=== PATIENT | female | born 1970 | race African-American/Black ===

== ENCOUNTER → 2017-10-25 | Day surgery (SDC) | payer OTHER ==
--- NOTE | 2017-10-26 10:38 | PATH ---
Surgical Pathology Report Patient Name: VANESSA BESS [facility]. Rec. #: [id number] /Age/Gender: 1970 (Age: 46) / F Account: [id number] Location: [facility] Taken: 10/25/2017 Received: 10/25/2017 Reported: 10/26/2017 Physicians: Rylie Hughes M.D. Specimen(s) Received A: LEFT BREAST SPECIMEN WITH CALCIFICATIONS B: LEFT BREAST SPECIMEN WITHOUT CALCIFICATIONS Clinical History Nonpalpable lesion Mammographic findings: Microcalcification, suspicious Final Diagnosis A. BREAST, LEFT, WITH CALCIFICATIONS, STEREOTACTIC BIOPSY: BENIGN BREAST TISSUE SHOWING FIBROCYSTIC CHANGES INCLUDING CYSTIC APOCRINE METAPLASIA WITH FEW CALCIFICATIONS IN ASSOCIATION WITH CYST CONTENTS AND FOCALLY IN BENIGN GLANDULAR PARENCHYMA. B. BREAST, LEFT, WITHOUT CALCIFICATIONS, STEREOTACTIC BIOPSY: BENIGN BREAST TISSUE. Electronically Signed Torie Blanco M.D. Gross Description A. Received in formalin labeled "left breast with calcifications," is a 1.8 x 1.3 x 0.3 cm aggregate of multiple escalera-yellow, irregular to cylindrical portions of fibroadipose tissue. The formalin is filtered and the specimen is entirely submitted in one cassette. B. Received in formalin labeled "left breast without calcifications," is a 2.0 x 1.5 x 0.3 cm aggregate of multiple escalera-yellow, irregular to cylindrical portions of fibroadipose tissue. The formalin is filtered and the specimen is entirely submitted in one cassette. Time to formalin fixation: 5 minutes Total formalin fixation time: Approximately 6 hours. 10/25/2017 [facility]10/25/2017
== END | disposition home or self-care (01) ==
LOC: FMAMMOTONE 10:08
PROVIDERS: ATTEND Family Medicine
PROC: 0HBU3ZX Excision of Left Breast, Percutaneous Approach, Diagnostic (ICD-10-PCS; principal; 2017-10-25)
DX: N60.12 Diffuse cystic mastopathy of left breast (principal); R92.1 Mammographic calcification found on diagnostic imaging of breast; Z53.8 Procedure and treatment not carried out for other reasons; N64.89 Other specified disorders of breast
CPT/HCPCS: 19081; 19082; 87899; 88305-TC; A4648

== ENCOUNTER 2018-05-16 12:57 | Day surgery (SDC) | payer OTHER ==
[2018-05-14 16:30] VITALS: BMI 20.3
[2018-05-16 14:31] VITALS: BP 117/76; PULSE 88; TEMP 98
--- NOTE | 2018-05-16 14:33 | HP ---
Admitting History and Physical - Admission Chief Complaint: Prolonged and heavy menses History of Present Illness: 47 yo with h/o prolonged and heavy menses is pre op for D&C hysteroscopy. History Source: Patient Limitations to Obtaining History: No Limitations - Past Medical History ...LMP: 04/15/18 ...: No - Smoking History Smoking history: Never smoked - Alcohol/Substance Use Hx Alcohol Use: No Home Medications - Allergies Allergies/Adverse Reactions: Allergies Allergy/AdvReac Type Severity Reaction Status Date / Time No Known Allergies Allergy Verified 05/14/18 16:09 - Home Medications Home Medications: Ambulatory Orders Ascorbic Acid [Vitamin C -] 500 mg PO DAILY 05/14/18 Atorvastatin Ca [Lipitor] 10 mg PO HS 05/14/18 Clozapine 400 mg PO HS 05/14/18 Docusate Sodium [Colace] 100 mg PO DAILY 05/14/18 Metoprolol Succinate [Toprol Xl] 50 mg PO DAILY 05/14/18 Multivit-Min36/Iron/Folic Acid [Geritol Complete Tablet] 1 each PO DAILY Family Disease History - Family Disease History Family History: Unremarkable Review of Systems - Review of Systems Constitutional: reports: No Symptoms Eyes: reports: No Symptoms HENT: reports: No Symptoms Neck: reports: No Symptoms Cardiovascular: reports: No Symptoms Respiratory: reports: No Symptoms Gastrointestinal: reports: No Symptoms Genitourinary: reports: No Symptoms Breasts: reports: No Symptoms Reported Musculoskeletal: reports: No Symptoms Integumentary: reports: No Symptoms Neurological: reports: No Symptoms Endocrine: reports: No Symptoms Hematology/Lymphatic: reports: No Symptoms Psychiatric: reports: No Symptoms Pain Intensity: 0 Physical Examination Constitutional: Yes: Well Nourished Eyes: Yes: Conjunctiva Clear HENT: Yes: Atraumatic Neck: Yes: Supple Cardiovascular: Yes: Regular Rate and Rhythm Respiratory: Yes: Regular Gastrointestinal: Yes: Normal Bowel Sounds Extremities: Yes: WNL Neurological: Yes: Alert, Oriented ...Motor Strength: WNL Psychiatric: Yes: Alert, Oriented Problem List - Problems (1) Menorrhagia Code(s): N92.0 - EXCESSIVE AND FREQUENT MENSTRUATION WITH REGULAR CYCLE Qualifiers: Menorrahagia type: with regular cycle Qualified Code(s): N92.0 - Excessive and frequent menstruation with regular cycle Assessment/Plan Menorrhagia Pre op for D&C hysteroscopy Consent signed Anesthesia to see patient
== END 2018-05-16 16:35 | disposition home or self-care (01) ==
LOC: JASU-SURG 12:57
PROVIDERS: ATTEND Obstetrics & Gynecology
PROC: 3E033GC Introduction of Other Therapeutic Substance into Peripheral Vein, Percutaneous Approach (ICD-10-PCS; principal; 2018-05-16)
DX: Z53.8 Procedure and treatment not carried out for other reasons (principal)
CPT/HCPCS: 84703

== ENCOUNTER 2018-05-30 13:53 | Day surgery (SDC) | payer OTHER ==
[2018-05-28 14:46] VITALS: BMI 19.6
--- NOTE | 2018-05-30 15:31 | HP ---
History & Physical Update - Physical Physical: No Change - Assessment Assessment: No Change - Plan Plan: No Change
[2018-05-30] MEDS ORDERED: LIDOCAINE HCL/PF 2% SDV 5ML VIAL ONE (15:35)
[2018-05-30] MEDS ORDERED: SUCCINYLCHOLINE CHLORIDE 200 MG/10 ML VIAL ONE (15:35)
[2018-05-30] MEDS ORDERED: PROPOFOL 20 ML ONE (15:35)
[2018-05-30] MEDS ORDERED: MIDAZOLAM HCL 2 MG/2 ML SINGLE DOSE VIAL ONE (15:35)
--- NOTE | 2018-05-30 16:39 | OP ---
Operative Note - Note: Operative Date: 05/30/18 Pre-Operative Diagnosis: Menorrhagia Operation: D&C Hysteroscopy Post-Operative Diagnosis: Same as Pre-op Surgeon: Mindy Galvez Anesthesia: General Specimens Removed: Endometrial curettings Estimated Blood Loss (mls): 5 Operative Report Dictated: Yes
[2018-05-30] MEDS ORDERED: LACTATED RINGERS SOLUTION 1,000 ML IV SCH (16:45)
[2018-05-30] MEDS ORDERED: KETOROLAC TROMETHAMINE 30 MG/1 ML VIAL ONE (17:05)
[2018-05-30] MEDS ORDERED: ACETAMINOPHEN INJECTION 100 ML IVPB ONE (17:05)
[2018-05-30] MEDS ORDERED: ACETAMINOPHEN 1000 MG/100 ML VIAL (NON FORMULARY) IVPB ONE ×2 (17:08→17:30)
[2018-05-30] MEDS ORDERED: KETOROLAC TROMETHAMINE 30 MG/1 ML VIAL IVPUSH ONE (17:30)
--- NOTE | 2018-05-30 18:03 | OP ---
DATE OF OPERATION: 05/30/2018 PREOPERATIVE DIAGNOSIS: Menorrhagia. POSTOPERATIVE DIAGNOSIS: Menorrhagia. PROCEDURE: Dilation and curettage hysteroscopy. SURGEON: Mindy Galvez MD ANESTHESIA: General. COMPLICATIONS: None. ESTIMATED BLOOD LOSS: Less than 5 mL. PROCEDURE: Patient was taken to the operating room where general anesthesia was administered. Patient was then placed in lithotomy position. She was then prepped and draped in appropriate sterile fashion. A weighted speculum was placed in the vagina. Anterior lip of the cervix was grasped with a single-toothed tenaculum. Then the 5-mm hysteroscope was gently introduced into the uterine cavity. There was a blood clot noted in the cavity. The hysteroscope was removed. The cervix was sequentially dilated with Winchester dilators and a sharp curettage was then performed. A second hysteroscopic look at the cavity confirmed removal of the clots and then the instruments were removed. The patient was taken out of lithotomy position. She was taken to the PACU in stable condition. PATHOLOGY: Endometrial curettings. Rylie [id number]
[2018-05-30 20:03] VITALS: BP 130/74; PULSE 99; TEMP 97.3
--- NOTE | 2018-06-03 17:59 | PATH ---
Surgical Pathology Report Patient Name: VANESSA BESS [facility]. Rec. #: [id number] /Age/Gender: 1970 (Age: 47) / F Account: [id number] Location: [facility] SURGICAL Taken: 05/30/2018 Received: 05/31/2018 Reported: 06/03/2018 Physicians: Mindy Galvez M.D. Specimen(s) Received ENDOMETRIAL CURETTINGS Clinical History Menorrhagia Final Diagnosis ENDOMETRIAL CURETTINGS, DILATION AND CURETTAGE: FRAGMENTS OF ENDOMETRIAL POLYP, SUPERFICIAL MYOMETRIUM, AND BENIGN CERVICAL SQUAMOUS MUCOSA. Electronically Signed Jackie Gonzalez M.D. Gross Description Received in formalin labeled "endometrial curettings," is a 3.5 x 3.0 x 0.3 cm aggregate of escalera-brown soft tissue fragments admixed with blood clot. The formalin is filtered and the specimen is entirely submitted in 2 cassettes. /05/31/2018 [place]05/31/2018
== END 2018-05-30 19:15 | disposition home or self-care (01) ==
LOC: JASU-SURG 13:53
PROVIDERS: ATTEND Obstetrics & Gynecology
PROC: 0UDB7ZX Extraction of Endometrium, Via Natural or Artificial Opening, Diagnostic (ICD-10-PCS; principal; 2018-05-30 15:00)
PROC: 0UJD8ZZ Inspection of Uterus and Cervix, Via Natural or Artificial Opening Endoscopic (ICD-10-PCS; 2018-05-30 15:00)
DX: N92.0 Excessive and frequent menstruation with regular cycle (principal)
CPT/HCPCS: 84703; 88305-TC; 94760; J0131

== ENCOUNTER 2021-11-24 14:17 | Inpatient (IN) | payer OTHER ==
[2021-11-24] MEDS ORDERED: SODIUM CHLORIDE 1,000 ML IV STA (15:27)
[2021-11-24] MEDS ORDERED: ONDANSETRON 4 MG/2 ML VIAL IVPUSH ONE (15:27)
[2021-11-24] MEDS ORDERED: ONDANSETRON 4 MG/2 ML VIAL ONE (15:47)
[2021-11-24] MEDS ORDERED: morphine CARPU-JECT 4 MG/1 ML DISP.SYRIN IVPUSH ONE (16:10)
[2021-11-24 16:49] LABS: BASO % 0.5 % (0-2.0); EOS % 0.1 % (0-4.5); HEMATOCRIT 32.7 % (32.4-45.2); HEMOGLOBIN 10.8 GM/dL (10.7-15.3); LYMPH % 21.2 % (8-40); MCH 25.8 pg (25.7-33.7); MCHC 33.1 g/dl (32.0-36.0); MEAN CELL VOLUME 78.1 fl (80-96); MEAN PLT VOLUME 9.6 fl (7.5-11.1); MONO % 9.1 % (3.8-10.2); NEUT % 69.1 % (42.8-82.8); PLATELET COUNT 247 10^3/uL (134-434); RBC 4.19 M/mm3 (3.60-5.2); RDW 14.5 % (11.6-15.6)
[2021-11-24 16:56] LABS: EPI CELLS >36 /uL (0-25.1); HYALINE CASTS 7 /uL (0-3.1); URINE APPEARANCE CLOUDY; URINE BACTERIA 138 /uL (0-1359); URINE BILIRUBIN NEGATIVE (NEGATIVE); URINE COLOR DK YELLOW; URINE GLUCOSE (UA) NEGATIVE (NEGATIVE); URINE KETONE TRACE (NEGATIVE); URINE LEUK ESTERASE TRACE (NEGATIVE); URINE NITRITE NEGATIVE (NEGATIVE); URINE PROTEIN 1+ (NEGATIVE); URINE WBC 63 /uL (0-25.8)
[2021-11-24 16:59] LABS: URINE RBC 45.5 /uL (0-23.9)
[2021-11-24 17:10] LABS: CALCIUM 9.2 mg/dL (8.5-10.1)
[2021-11-24 17:11] LABS: ALBUMIN 3.8 g/dl (3.4-5.0); BLOOD UREA NITROGEN 10.2 mg/dL (7-18)
[2021-11-24 17:14] LABS: CREATININE 0.7 mg/dL (0.55-1.3)
[2021-11-24 17:15] LABS: TOT PROT 8.2 g/dl (6.4-8.2)
[2021-11-24 17:16] LABS: BILIRUBIN,TOTAL 0.4 mg/dL (0.2-1)
[2021-11-24] MEDS ORDERED: KCL 10 MEQ IVPB 20 MEQ/200 ML INFUS.BAG IVPB ONE (22:55)
[2021-11-24] MEDS: SODIUM CHLORIDE 1,000 ML IV SCH (23:08)
[2021-11-24] MEDS: KCL 10 MEQ IVPB 10 MEQ/100 ML INFUS.BAG IVPB SCH (23:08)
[2021-11-25] MEDS: KCL 10 MEQ IVPB 10 MEQ/100 ML INFUS.BAG IVPB SCH ×4 (00:30→13:51)
[2021-11-25] MEDS: SODIUM CHLORIDE 1,000 ML IV SCH ×2 (05:50→21:25)
[2021-11-25 07:28] VITALS: BMI 22.9
[2021-11-25] MEDS ORDERED: ONDANSETRON 4 MG/2 ML VIAL IVPUSH PRN (08:25)
[2021-11-25 10:14] LABS: BASO % 0.3 % (0-2.0); EOS % 0.2 % (0-4.5); HEMATOCRIT 30.6 % (32.4-45.2); HEMOGLOBIN 9.9 GM/dL (10.7-15.3); LYMPH % 23.3 % (8-40); MCH 25.6 pg (25.7-33.7); MCHC 32.2 g/dl (32.0-36.0); MEAN CELL VOLUME 79.5 fl (80-96); MONO % 9.1 % (3.8-10.2); NEUT % 67.1 % (42.8-82.8); PLATELET COUNT 223 10^3/uL (134-434); RBC 3.85 M/mm3 (3.60-5.2); RDW 13.9 % (11.6-15.6); WHITE BLOOD COUNT 3.9 K/mm3 (4.0-10.0)
[2021-11-25] MEDS: PANTOPRAZOLE SODIUM 40 MG VIAL IVPUSH SCH ×2 (10:50→10:54)
[2021-11-25 10:51] LABS: CALCIUM 8.5 mg/dL (8.5-10.1)
[2021-11-25 10:52] LABS: ALBUMIN 3.2 g/dl (3.4-5.0); BLOOD UREA NITROGEN 6.4 mg/dL (7-18)
[2021-11-25] MEDS: ENOXAPARIN NA (PORCINE) 40 MG/0.4 ML DISP.SYRIN SQ SCH (10:54)
[2021-11-25 10:55] LABS: CREATININE 0.6 mg/dL (0.55-1.3); PHOSPHOROUS 2.8 mg/dL (2.5-4.9)
[2021-11-25 10:56] LABS: BILIRUBIN,TOTAL 0.5 mg/dL (0.2-1); TOT PROT 6.9 g/dl (6.4-8.2)
[2021-11-25] MEDS ORDERED: OLANZapine 2.5 MG TABLET PO SCH (11:45)
[2021-11-25] MEDS ORDERED: DOCUSATE SODIUM 100 MG CAPSULE (FP) PO SCH (12:00)
[2021-11-25] MEDS ORDERED: ACETAMINOPHEN 1000 MG/100 ML BAG IVPB PRN (12:56)
[2021-11-25] MEDS ORDERED: OLANZapine 2.5 MG TABLET NGT SCH (12:58)
[2021-11-25] MEDS ORDERED: METOPROLOL TARTRATE 25 MG TABLET (FP) NGT SCH (13:15)
[2021-11-25] MEDS ORDERED: cloZAPine 100 MG TABLET NGT SCH (13:23)
[2021-11-25] MEDS ORDERED: DOCUSATE NA 100 MG/10 ML UNIT-DOSE CUPS NGT SCH ×2 (13:30→18:00)
[2021-11-25] MEDS ORDERED: cloZAPine 100 MG TABLET PO SCH (15:09)
[2021-11-25] MEDS: OFLOXACIN 0.3% OPHTHALMIC SOLUTION 5 ML BOTTLE OS SCH ×2 (16:18→21:43)
[2021-11-25] MEDS: DOCUSATE NA 100 MG/10 ML UNIT-DOSE CUPS PO SCH (18:06)
[2021-11-25] MEDS: METOPROLOL TARTRATE 25 MG TABLET (FP) PO SCH ×2 (21:28→23:56)
[2021-11-25] MEDS: GABAPENTIN 250 MG/5 ML ORAL SOLUTION, 470 ML BOTTLE PO SCH (21:28)
[2021-11-25] MEDS: TIMOLOL 0.5% OPHTHALMIC SOL 5 ML BOTTLE OD SCH (21:42)
[2021-11-25] MEDS: DORZOLAMIDE 2% HCL OPHTHALMIC SOLUTION 10 ML BOTTLE OD SCH (21:43)
[2021-11-25] MEDS ORDERED: GABAPENTIN 250 MG/5 ML ORAL SOLUTION, 470 ML BOTTLE NGT SCH (22:00)
[2021-11-25] MEDS ORDERED: PATIENT'S OWN MEDICATION (NON-FORMULARY) (Dorzolamide Hcl/Timolol Maleat [Dorzolamide-Timo SCH (22:00)
[2021-11-25] MEDS ORDERED: CLOZAPINE 300 MG NGT SCH (22:00)
[2021-11-25] MEDS ORDERED: CLOZAPINE 100 MG PO SCH (22:00)
[2021-11-25] MEDS ORDERED: GABAPENTIN 100 MG CAPSULE PO SCH (22:00)
[2021-11-26] MEDS: GABAPENTIN 250 MG/5 ML ORAL SOLUTION, 470 ML BOTTLE PO SCH ×3 (01:05→22:30)
[2021-11-26] MEDS: DOCUSATE NA 100 MG/10 ML UNIT-DOSE CUPS PO SCH ×2 (01:05→06:05)
[2021-11-26] MEDS: cloZAPine 100 MG TABLET PO SCH ×2 (01:06→22:00)
[2021-11-26] MEDS: OFLOXACIN 0.3% OPHTHALMIC SOLUTION 5 ML BOTTLE OS SCH ×3 (06:05→22:03)
[2021-11-26] MEDS ORDERED: DOCUSATE SODIUM 100 MG CAPSULE (FP) PO SCH (09:30)
[2021-11-26] MEDS: ENOXAPARIN NA (PORCINE) 40 MG/0.4 ML DISP.SYRIN SQ SCH (09:43)
[2021-11-26] MEDS: PANTOPRAZOLE SODIUM 40 MG VIAL IVPUSH SCH (09:44)
[2021-11-26] MEDS ORDERED: DOCUSATE SODIUM 100 MG CAPSULE (FP) PO ONE (09:45)
[2021-11-26] MEDS: METOPROLOL TARTRATE 25 MG TABLET (FP) PO SCH ×2 (09:50→21:58)
[2021-11-26] MEDS: TIMOLOL 0.5% OPHTHALMIC SOL 5 ML BOTTLE OD SCH ×2 (09:52→22:01)
[2021-11-26] MEDS: DORZOLAMIDE 2% HCL OPHTHALMIC SOLUTION 10 ML BOTTLE OD SCH ×2 (09:52→22:02)
[2021-11-26] MEDS ORDERED: PATIENT'S OWN MEDICATION (NON-FORMULARY) (Bempedoic Acid/Ezetimibe [Nexlizet 180-10 Mg Tab PO SCH ×2 (10:00)
[2021-11-26] MEDS ORDERED: PATIENT'S OWN MEDICATION (NON-FORMULARY) (Bempedoic Acid/Ezetimibe [Nexlizet 180-10 Mg Tab NGT SCH (10:00)
[2021-11-26 10:41] LABS: BASO % 0.3 % (0-2.0); EOS % 0.1 % (0-4.5); HEMATOCRIT 33.1 % (32.4-45.2); LYMPH % 18.5 % (8-40); MCHC 33.2 g/dl (32.0-36.0); MEAN CELL VOLUME 78.2 fl (80-96); MEAN PLT VOLUME 9.1 fl (7.5-11.1); NEUT % 73.1 % (42.8-82.8); PLATELET COUNT 239 10^3/uL (134-434); RBC 4.23 M/mm3 (3.60-5.2); WHITE BLOOD COUNT 3.4 K/mm3 (4.0-10.0)
[2021-11-26 11:02] LABS: CHLORIDE 105 mmol/L (98-107); SODIUM 142 mmol/L (136-145)
[2021-11-26 11:15] LABS: CALCIUM 8.8 mg/dL (8.5-10.1)
[2021-11-26 11:16] LABS: BLOOD UREA NITROGEN 3.1 mg/dL (7-18); CO2 30 mmol/L (21-32); GLUCOSE,RANDOM 121 mg/dL (74-106); MAGNESIUM 1.8 mg/dL (1.8-2.4)
[2021-11-26 11:19] LABS: CREATININE 0.7 mg/dL (0.55-1.3); PHOSPHOROUS 3.1 mg/dL (2.5-4.9)
[2021-11-26 12:03] LABS: ANION GAP 7 MMOL/L (8-16)
[2021-11-26] MEDS ORDERED: POTASSIUM CHLORIDE ORAL LIQUID 20 MEQ/15 ML PO ONE ×2 (12:45→14:51)
[2021-11-26] MEDS: KCL 10 MEQ IVPB 10 MEQ/100 ML INFUS.BAG IVPB SCH ×3 (13:02→15:20)
[2021-11-26 17:08] LABS: CALCIUM 8.1 mg/dL (8.5-10.1)
[2021-11-26 17:09] LABS: BLOOD UREA NITROGEN 3.9 mg/dL (7-18)
[2021-11-26 17:12] LABS: CREATININE 0.8 mg/dL (0.55-1.3)
[2021-11-26] MEDS: SODIUM CHLORIDE 1,000 ML IV SCH (23:31)
[2021-11-27] MEDS: OFLOXACIN 0.3% OPHTHALMIC SOLUTION 5 ML BOTTLE OS SCH ×3 (05:50→21:43)
[2021-11-27] MEDS: METOPROLOL TARTRATE 25 MG TABLET (FP) PO SCH ×2 (09:24→21:42)
[2021-11-27] MEDS: DORZOLAMIDE 2% HCL OPHTHALMIC SOLUTION 10 ML BOTTLE OD SCH ×2 (09:25→21:43)
[2021-11-27] MEDS: TIMOLOL 0.5% OPHTHALMIC SOL 5 ML BOTTLE OD SCH ×2 (09:25→21:43)
[2021-11-27] MEDS: ENOXAPARIN NA (PORCINE) 40 MG/0.4 ML DISP.SYRIN SQ SCH (09:26)
[2021-11-27] MEDS: GABAPENTIN 250 MG/5 ML ORAL SOLUTION, 470 ML BOTTLE PO SCH ×2 (09:26→21:43)
[2021-11-27] MEDS: PANTOPRAZOLE SODIUM 40 MG VIAL IVPUSH SCH (09:27)
[2021-11-27 09:51] LABS: BASO % 0.3 % (0-2.0); EOS % 0.1 % (0-4.5); HEMATOCRIT 32.9 % (32.4-45.2); LYMPH % 20.5 % (8-40); MCHC 33.3 g/dl (32.0-36.0); MEAN CELL VOLUME 78.1 fl (80-96); MEAN PLT VOLUME 9.5 fl (7.5-11.1); MONO % 9.5 % (3.8-10.2); NEUT % 69.6 % (42.8-82.8); PLATELET COUNT 263 10^3/uL (134-434); RBC 4.22 M/mm3 (3.60-5.2); WHITE BLOOD COUNT 3.9 K/mm3 (4.0-10.0)
[2021-11-27 10:19] LABS: CALCIUM 8.6 mg/dL (8.5-10.1)
[2021-11-27 10:20] LABS: BLOOD UREA NITROGEN 12.2 mg/dL (7-18); MAGNESIUM 1.9 mg/dL (1.8-2.4)
[2021-11-27 10:23] LABS: CREATININE 0.8 mg/dL (0.55-1.3); PHOSPHOROUS 3.4 mg/dL (2.5-4.9)
[2021-11-27] MEDS: SODIUM CHLORIDE 1,000 ML IV SCH (20:51)
[2021-11-27] MEDS: cloZAPine 100 MG TABLET PO SCH (21:42)
[2021-11-27] MEDS: DOCUSATE SODIUM 100 MG CAPSULE (FP) PO PRN (21:42)
[2021-11-28] MEDS: OFLOXACIN 0.3% OPHTHALMIC SOLUTION 5 ML BOTTLE OS SCH ×2 (05:59→13:51)
[2021-11-28 09:08] LABS: BASO % 0.4 % (0-2.0); EOS % 0.1 % (0-4.5); HEMATOCRIT 32.2 % (32.4-45.2); HEMOGLOBIN 10.6 GM/dL (10.7-15.3); LYMPH % 20.6 % (8-40); MCH 25.9 pg (25.7-33.7); MEAN CELL VOLUME 78.4 fl (80-96); MEAN PLT VOLUME 9.4 fl (7.5-11.1); NEUT % 68.9 % (42.8-82.8); PLATELET COUNT 266 10^3/uL (134-434); RBC 4.11 M/mm3 (3.60-5.2); RDW 13.9 % (11.6-15.6); WHITE BLOOD COUNT 4.8 K/mm3 (4.0-10.0)
[2021-11-28 09:33] LABS: BLOOD UREA NITROGEN 12.8 mg/dL (7-18); CALCIUM 8.6 mg/dL (8.5-10.1)
[2021-11-28 09:37] LABS: CREATININE 0.8 mg/dL (0.55-1.3); PHOSPHOROUS 3.6 mg/dL (2.5-4.9)
[2021-11-28] MEDS: METOPROLOL TARTRATE 25 MG TABLET (FP) PO SCH (09:43)
[2021-11-28] MEDS: DOCUSATE SODIUM 100 MG CAPSULE (FP) PO PRN (09:43)
[2021-11-28] MEDS: DORZOLAMIDE 2% HCL OPHTHALMIC SOLUTION 10 ML BOTTLE OD SCH (09:44)
[2021-11-28] MEDS: TIMOLOL 0.5% OPHTHALMIC SOL 5 ML BOTTLE OD SCH (09:44)
[2021-11-28] MEDS: GABAPENTIN 250 MG/5 ML ORAL SOLUTION, 470 ML BOTTLE PO SCH (09:45)
[2021-11-28] MEDS: PANTOPRAZOLE SODIUM 40 MG VIAL IVPUSH SCH (09:45)
[2021-11-28] MEDS: ENOXAPARIN NA (PORCINE) 40 MG/0.4 ML DISP.SYRIN SQ SCH (09:45)
[2021-11-28 15:04] VITALS: BP 127/90; PULSE 82; TEMP 98.7
== END 2021-11-28 18:24 | disposition home or self-care (01) | DRG 389 ==
LOC: JER 14:17 → JERBED 22:58 → J6S 11-25 05:21
PROVIDERS: ADMIT Internal Medicine; ATTEND Internal Medicine
PROC: 0D9670Z Drainage of Stomach with Drainage Device, Via Natural or Artificial Opening (ICD-10-PCS; principal; 2021-11-24)
DX: K56.609 Unspecified intestinal obstruction, unspecified as to partial versus complete obstruction (principal); F20.0 Paranoid schizophrenia; Q87.40 Marfan syndrome, unspecified; N39.0 Urinary tract infection, site not specified; H40.9 Unspecified glaucoma; E87.6 Hypokalemia; H54.7 Unspecified visual loss; I72.3 Aneurysm of iliac artery; K82.8 Other specified diseases of gallbladder; D64.9 Anemia, unspecified; N85.8 Other specified noninflammatory disorders of uterus; K76.89 Other specified diseases of liver
CPT/HCPCS: 36415; 71045-TC-FY; 74019-TC-FY; 74177-TC; 80048; 80053; 81003; 83690; 83735; 84100; 84484; 84703; 85025; 87086; 93005; 93010; 99285-25; C9803-CS; Q9967; U0003; U0005

== ENCOUNTER 2021-12-01 18:59 | Inpatient (IN) | payer OTHER ==
[2021-12-01] MEDS ORDERED: ACETAMINOPHEN 1000 MG/100 ML BAG IVPB ONE (21:07)
[2021-12-01] MEDS ORDERED: ACETAMINOPHEN INJECTION 100 ML IVPB ONE (21:27)
[2021-12-01 21:46] LABS: BASO % 0.2 % (0-2.0); EOS % 0.1 % (0-4.5); HEMATOCRIT 32.1 % (32.4-45.2); HEMOGLOBIN 10.8 GM/dL (10.7-15.3); LYMPH % 10.6 % (8-40); MCH 26.5 pg (25.7-33.7); MCHC 33.7 g/dl (32.0-36.0); MEAN CELL VOLUME 78.8 fl (80-96); MEAN PLT VOLUME 9.3 fl (7.5-11.1); MONO % 6.9 % (3.8-10.2); NEUT % 82.2 % (42.8-82.8); PLATELET COUNT 266 10^3/uL (134-434); RBC 4.07 M/mm3 (3.60-5.2); WHITE BLOOD COUNT 5.6 K/mm3 (4.0-10.0)
[2021-12-01 21:55] LABS: INR 1.11 (0.83-1.09); PROTHROMBIN TIME (PATIENT) 12.8 SEC (9.7-13.0)
[2021-12-01 21:57] LABS: ACTIVATED PTT 40.1 SECONDS (25.2-36.5)
[2021-12-01 22:07] LABS: ALBUMIN 3.7 g/dl (3.4-5.0); BLOOD UREA NITROGEN 8.9 mg/dL (7-18); CALCIUM 9.1 mg/dL (8.5-10.1); MAGNESIUM 2.3 mg/dL (1.8-2.4)
[2021-12-01 22:10] LABS: CREATININE 0.8 mg/dL (0.55-1.3); PHOSPHOROUS 3.5 mg/dL (2.5-4.9)
[2021-12-01 22:12] LABS: TOT PROT 8.1 g/dl (6.4-8.2)
[2021-12-01 22:19] LABS: BILIRUBIN,TOTAL 0.3 mg/dL (0.2-1)
[2021-12-01 22:59] LABS: EPI CELLS 12 /uL (0-25.1); HYALINE CASTS 1 /uL (0-3.1); PH,URINE 5.5 (5.0-8.0); URINE APPEARANCE CLEAR; URINE BACTERIA 84 /uL (0-1359); URINE BILIRUBIN NEGATIVE (NEGATIVE); URINE COLOR YELLOW; URINE GLUCOSE (UA) NEGATIVE (NEGATIVE); URINE KETONE NEGATIVE (NEGATIVE); URINE LEUK ESTERASE TRACE (NEGATIVE); URINE NITRITE NEGATIVE (NEGATIVE); URINE PROTEIN NEGATIVE (NEGATIVE); URINE RBC 23 /uL (0-23.9); URINE UROBILINOGEN 0.2 mg/dL (0.2-1.0); URINE WBC 11 /uL (0-25.8)
[2021-12-02] MEDS ORDERED: ACETAMINOPHEN 1000 MG/100 ML BAG IVPB PRN (07:36)
[2021-12-02] MEDS: SODIUM CHLORIDE 1,000 ML IV SCH ×2 (08:50→22:05)
[2021-12-02] MEDS: ENOXAPARIN NA (PORCINE) 40 MG/0.4 ML DISP.SYRIN SQ SCH (18:57)
[2021-12-02] MEDS: OFLOXACIN 0.3% OPHTHALMIC SOLUTION 5 ML BOTTLE OS SCH ×3 (18:57→21:49)
[2021-12-02] MEDS: LORazepam 2 MG/ML SDV VIAL IVPUSH SCH (22:04)
[2021-12-03 01:31] VITALS: BMI 21.4
[2021-12-03] MEDS: OFLOXACIN 0.3% OPHTHALMIC SOLUTION 5 ML BOTTLE OS SCH ×3 (06:29→21:23)
[2021-12-03] MEDS: SODIUM CHLORIDE 1,000 ML IV SCH (06:30)
[2021-12-03 08:33] LABS: ALBUMIN 3.2 g/dl (3.4-5.0); CALCIUM 8.4 mg/dL (8.5-10.1)
[2021-12-03 08:34] LABS: BLOOD UREA NITROGEN 6.1 mg/dL (7-18); MAGNESIUM 2.1 mg/dL (1.8-2.4)
[2021-12-03 08:37] LABS: BILIRUBIN,TOTAL 0.5 mg/dL (0.2-1); CREATININE 0.6 mg/dL (0.55-1.3); PHOSPHOROUS 3.6 mg/dL (2.5-4.9); TOT PROT 6.9 g/dl (6.4-8.2)
[2021-12-03 08:41] LABS: HEMOGLOBIN 10.2 GM/dL (10.7-15.3); MCH 26.1 pg (25.7-33.7); MCHC 32.9 g/dl (32.0-36.0); MEAN CELL VOLUME 79.4 fl (80-96); MEAN PLT VOLUME 9.6 fl (7.5-11.1); PLATELET COUNT 236 10^3/uL (134-434); RBC 3.91 M/mm3 (3.60-5.2); WHITE BLOOD COUNT 4.3 K/mm3 (4.0-10.0)
[2021-12-03] MEDS: LORazepam 2 MG/ML SDV VIAL IVPUSH SCH (10:38)
[2021-12-03] MEDS: ENOXAPARIN NA (PORCINE) 40 MG/0.4 ML DISP.SYRIN SQ SCH (10:39)
[2021-12-03] MEDS: KCL 10 MEQ IVPB 10 MEQ/100 ML INFUS.BAG IVPB SCH ×3 (15:07→17:20)
[2021-12-03] MEDS ORDERED: PATIENT'S OWN MEDICATION (NON-FORMULARY) (Dorzolamide Hcl/Timolol Maleat [Dorzolamide-Timo OD SCH (18:50)
[2021-12-03] MEDS: LORazepam 2 MG/ML SDV VIAL IVPUSH PRN (21:22)
[2021-12-03] MEDS: TIMOLOL 0.5% OPHTHALMIC SOL 5 ML BOTTLE OD SCH (21:24)
[2021-12-03] MEDS: DORZOLAMIDE 2% HCL OPHTHALMIC SOLUTION 10 ML BOTTLE OD SCH (21:24)
[2021-12-04] MEDS: LORazepam 2 MG/ML SDV VIAL IVPUSH PRN (06:22)
[2021-12-04] MEDS: SODIUM CHLORIDE 1,000 ML IV SCH (06:36)
[2021-12-04 08:08] LABS: HEMATOCRIT 30.9 % (32.4-45.2); HEMOGLOBIN 10.1 GM/dL (10.7-15.3); MCH 25.7 pg (25.7-33.7); MCHC 32.8 g/dl (32.0-36.0); MEAN CELL VOLUME 78.3 fl (80-96); MEAN PLT VOLUME 9.3 fl (7.5-11.1); PLATELET COUNT 253 10^3/uL (134-434); RBC 3.94 M/mm3 (3.60-5.2); RDW 13.8 % (11.6-15.6); WHITE BLOOD COUNT 4.1 K/mm3 (4.0-10.0)
[2021-12-04 08:41] LABS: ALBUMIN 3.2 g/dl (3.4-5.0); BLOOD UREA NITROGEN 5.2 mg/dL (7-18); CALCIUM 8.3 mg/dL (8.5-10.1)
[2021-12-04 08:43] LABS: CREATININE 0.7 mg/dL (0.55-1.3); PHOSPHOROUS 3.4 mg/dL (2.5-4.9)
[2021-12-04 08:45] LABS: BILIRUBIN,TOTAL 0.7 mg/dL (0.2-1); TOT PROT 6.9 g/dl (6.4-8.2)
[2021-12-04] MEDS: TIMOLOL 0.5% OPHTHALMIC SOL 5 ML BOTTLE OD SCH ×2 (10:22→21:40)
[2021-12-04] MEDS: DORZOLAMIDE 2% HCL OPHTHALMIC SOLUTION 10 ML BOTTLE OD SCH ×2 (10:23→21:40)
[2021-12-04] MEDS: OFLOXACIN 0.3% OPHTHALMIC SOLUTION 5 ML BOTTLE OS SCH ×2 (10:23→21:40)
[2021-12-04] MEDS: ENOXAPARIN NA (PORCINE) 40 MG/0.4 ML DISP.SYRIN SQ SCH (10:24)
[2021-12-04] MEDS ORDERED: cefTRIAXone SODIUM 1 GM VIAL ONE (15:11)
[2021-12-04] MEDS ORDERED: DEXTROSE 5%-WATER - 50 ML IVPB ONE (15:12)
[2021-12-04] MEDS: CEFTRIAXONE 1 GM in DEXTROSE 5%-WATER - 50 ML IVPB SCH (15:18)
[2021-12-05 08:14] LABS: HEMATOCRIT 33.6 % (32.4-45.2); MCH 25.5 pg (25.7-33.7); MCHC 32.7 g/dl (32.0-36.0); MEAN CELL VOLUME 77.8 fl (80-96); MEAN PLT VOLUME 8.8 fl (7.5-11.1); PLATELET COUNT 294 10^3/uL (134-434); RBC 4.31 M/mm3 (3.60-5.2); RDW 13.8 % (11.6-15.6); WHITE BLOOD COUNT 3.9 K/mm3 (4.0-10.0)
[2021-12-05 08:40] LABS: CHLORIDE 101 mmol/L (98-107); SODIUM 139 mmol/L (136-145)
[2021-12-05 09:08] LABS: ALBUMIN 3.4 g/dl (3.4-5.0); ANION GAP 5 MMOL/L (8-16); CO2 32 mmol/L (21-32)
[2021-12-05 09:09] LABS: GLUCOSE,RANDOM 101 mg/dL (74-106); MAGNESIUM 2.2 mg/dL (1.8-2.4)
[2021-12-05 09:10] LABS: PHOSPHOROUS 3.4 mg/dL (2.5-4.9)
[2021-12-05 09:11] LABS: CREATININE 0.7 mg/dL (0.55-1.3)
[2021-12-05 09:12] LABS: BILIRUBIN,TOTAL 0.4 mg/dL (0.2-1); SGOT/AST 20 U/L (15-37); SGPT/ALT 16 U/L (13-61); TOT PROT 7.5 g/dl (6.4-8.2)
[2021-12-05 09:13] LABS: ALK PHOS 58 U/L (45-117); BLOOD UREA NITROGEN 2.7 mg/dL (7-18)
[2021-12-05] MEDS ORDERED: cefTRIAXone SODIUM 1 GM VIAL ONE (10:15)
[2021-12-05] MEDS ORDERED: DEXTROSE 5%-WATER - 50 ML IVPB ONE (10:15)
[2021-12-05] MEDS: ENOXAPARIN NA (PORCINE) 40 MG/0.4 ML DISP.SYRIN SQ SCH (10:20)
[2021-12-05] MEDS: GABAPENTIN 100 MG CAPSULE PO SCH ×2 (10:20→22:02)
[2021-12-05] MEDS: DORZOLAMIDE 2% HCL OPHTHALMIC SOLUTION 10 ML BOTTLE OD SCH ×2 (10:58→22:02)
[2021-12-05] MEDS: CEFTRIAXONE 1 GM in DEXTROSE 5%-WATER - 50 ML IVPB SCH (10:58)
[2021-12-05] MEDS: OFLOXACIN 0.3% OPHTHALMIC SOLUTION 5 ML BOTTLE OS SCH ×2 (10:58→22:02)
[2021-12-05] MEDS: TIMOLOL 0.5% OPHTHALMIC SOL 5 ML BOTTLE OD SCH ×2 (10:58→22:02)
[2021-12-05] MEDS ORDERED: LORazepam 1 MG TABLET PO ONE (17:01)
[2021-12-05] MEDS ORDERED: LORazepam 2 MG/ML SDV VIAL IVPUSH ONE (20:35)
[2021-12-05] MEDS ORDERED: LORazepam 2 MG/ML SDV VIAL IVPUSH PRN (20:50)
[2021-12-05] MEDS ORDERED: cloZAPine 100 MG TABLET PO SCH ×2 (22:00)
[2021-12-06 09:46] LABS: HEMATOCRIT 33.1 % (32.4-45.2); HEMOGLOBIN 10.7 GM/dL (10.7-15.3); MCH 25.6 pg (25.7-33.7); MCHC 32.4 g/dl (32.0-36.0); MEAN CELL VOLUME 79.1 fl (80-96); MEAN PLT VOLUME 9.1 fl (7.5-11.1); PLATELET COUNT 282 10^3/uL (134-434); RBC 4.19 M/mm3 (3.60-5.2); RDW 13.6 % (11.6-15.6); WHITE BLOOD COUNT 3.6 K/mm3 (4.0-10.0)
[2021-12-06 10:06] LABS: ALBUMIN 3.3 g/dl (3.4-5.0); BLOOD UREA NITROGEN 9.9 mg/dL (7-18); CALCIUM 8.8 mg/dL (8.5-10.1); MAGNESIUM 2.3 mg/dL (1.8-2.4)
[2021-12-06 10:09] LABS: CREATININE 0.8 mg/dL (0.55-1.3); PHOSPHOROUS 4.2 mg/dL (2.5-4.9)
[2021-12-06 10:11] LABS: BILIRUBIN,TOTAL 0.2 mg/dL (0.2-1); TOT PROT 7.2 g/dl (6.4-8.2)
[2021-12-06] MEDS ORDERED: cefTRIAXone SODIUM 1 GM VIAL ONE (10:18)
[2021-12-06] MEDS ORDERED: DEXTROSE 5%-WATER - 50 ML IVPB ONE (10:18)
[2021-12-06] MEDS: CEFTRIAXONE 1 GM in DEXTROSE 5%-WATER - 50 ML IVPB SCH (10:25)
[2021-12-06] MEDS: ENOXAPARIN NA (PORCINE) 40 MG/0.4 ML DISP.SYRIN SQ SCH (10:25)
[2021-12-06] MEDS: TIMOLOL 0.5% OPHTHALMIC SOL 5 ML BOTTLE OD SCH (10:26)
[2021-12-06] MEDS: DORZOLAMIDE 2% HCL OPHTHALMIC SOLUTION 10 ML BOTTLE OD SCH (10:26)
[2021-12-06] MEDS: OFLOXACIN 0.3% OPHTHALMIC SOLUTION 5 ML BOTTLE OS SCH (10:30)
[2021-12-06] MEDS: GABAPENTIN 100 MG CAPSULE PO SCH (12:56)
[2021-12-06] MEDS ORDERED: cloZAPine 100 MG TABLET PO SCH (13:37)
[2021-12-06 15:50] VITALS: BP 130/72; PULSE 84; TEMP 98.4
[2021-12-06] MEDS: PATIENT'S OWN MEDICATION (NON-FORMULARY) (Bempedoic Acid/Ezetimibe [Nexlizet 180-10 Mg Tab PO SCH (16:00)
== END 2021-12-06 17:58 | disposition home or self-care (01) | DRG 389 ==
LOC: JER 18:59 → JERBED 12-02 04:29 → J8W 12-02 21:35
PROVIDERS: ADMIT Internal Medicine; ATTEND Internal Medicine
PROC: 0D9670Z Drainage of Stomach with Drainage Device, Via Natural or Artificial Opening (ICD-10-PCS; principal; 2021-12-01)
DX: K56.609 Unspecified intestinal obstruction, unspecified as to partial versus complete obstruction (principal); Q87.40 Marfan syndrome, unspecified; F20.0 Paranoid schizophrenia; N39.0 Urinary tract infection, site not specified; H40.9 Unspecified glaucoma; D64.9 Anemia, unspecified; K76.89 Other specified diseases of liver; D25.9 Leiomyoma of uterus, unspecified; H10.9 Unspecified conjunctivitis; D18.09 Hemangioma of other sites; B96.1 Klebsiella pneumoniae [K. pneumoniae] as the cause of diseases classified elsewhere
CPT/HCPCS: 0241U-QW; 36415; 71045-TC-FY; 74018-TC-FY; 74019-TC-FY; 74177-TC; 80053; 81003; 82962; 83605; 83690; 83735; 84100; 84132; 84484; 85025; 85027; 85610; 85730; 86850; 86900; 86901; 87086; 87186; 93005; 93010; 99285-25